=== PATIENT | female | born 1980 | race Caucasian/White ===

== ENCOUNTER 2021-02-06 20:37 | Emergency (ER) | payer OTHER ==
[~2021-02-06] VITALS: Ht 160 cm; Wt 88.1 kg
[2021-02-06 21:24] LABS: Source, Urine Clean Catch
[2021-02-06 21:27] LABS: Bilirubin, Urine Neg (Neg); Blood, Urine 1+ (Neg); Glucose Qualitative, Urine Neg (Neg); Ketones, Urine 2+ (Neg); Leukocyte Esterase, Urine Neg (Neg); Nitrite, Urine Neg (Neg); Protein, Urine Neg (Neg); Specific Gravity, Urine 1.015 (1.003-1.022); Urobilinogen, Urine NORM (Normal)
[2021-02-06 21:29] LABS: Appearance, Urine Clear (Clear); Color, Urine Yellow (P-Yellow)
[2021-02-06 21:36] LABS: Bacteria Not Seen /hpf; Red Blood Cells, Urine 0-2 /hpf (0-2); Squamous Epithelial Cells Few /hpf (Few); White Blood Cells, Urine 0-2 /hpf (0-5)
[2021-02-06 21:38] LABS: BASOPHILS ABSOLUTE AUTO 0.07 K/mm3 (0.00-0.23); BASOPHILS PERCENT AUTO 1 % (0-2); EOSINOPHILS ABSOLUTE AUTO 0.07 K/mm3 (0.00-0.68); EOSINOPHILS PERCENT AUTO 1 % (0-6); Hematocrit 45.6 % (33.0-51.0); Hemoglobin 14.7 g/dL (11.5-16.0); IMMATURE GRAN ABSOLUTE AUTO 0.04 K/mm3 (0.00-0.10); IMMATURE GRAN PERCENT AUTO 0 % (0-1); LYMPHOCYTES ABSOLUTE AUTO 3.08 K/mm3 (0.84-5.20); LYMPHOCYTES PERCENT AUTO 30 % (21-46); MONOCYTES PERCENT AUTO 6 % (4-13); Mean Corpuscular HGB Conc 32.2 g/dL (31.5-36.5); Mean Corpuscular Volume 81 fL (80-100); Mean Platelet Volume 9.8 fL (9.1-12.4); NEUTROPHILS ABSOLUTE AUTO 6.38 K/mm3 (1.96-9.15); NEUTROPHILS PERCENT AUTO 62 % (41-73); Platelet Count 288 K/mm3 (150-400); RDW Standard Deviation 37.7 fL (35.1-46.3); Red Blood Cell Count 5.66 M/mm3 (3.80-5.20); White Blood Cell Count 10.24 K/mm3 (4.00-11.30)
[2021-02-06 21:57] LABS: Alanine Aminotransfer (ALT/SGP 41 U/L (12-78); Albumin, Blood 3.8 g/dL (3.4-5.0); Albumin/Globulin Ratio 1.1 (0.8-1.8); Alk Phos 95 U/L (50-136); Anion Gap 6 mmol/L (6-16); Aspartate Aminotrans (AST/SGOT 26 U/L (12-37); Bilirubin, Total 0.4 mg/dL (0.1-1.0); Blood Urea Nitrogen 13 mg/dL (8-24); Bun/Creatinine Ratio 16.2 (12.0-20.0); CO2, Blood 25 mmol/L (21-32); Chloride, Blood 108 mmol/L (98-108); Globulin, Blood 3.6 g/dL (2.2-4.0); Glomerular Filtration Rate >60 (60-); Glucose, Blood 118 mg/dL (70-99); Potassium, Blood 3.9 mmol/L (3.5-5.5); Sodium, Blood 139 mmol/L (136-145); Total Protein, Blood 7.4 g/dL (6.4-8.2)
== END 2021-02-07 00:17 | disposition home or self-care (01) ==
LOC: ER 20:37
PROVIDERS: Physician Assistant
DX: M54.5 Low back pain (principal); G89.29 Other chronic pain; R51.9 Headache, unspecified
CPT/HCPCS: 36415; 80053; 81001; 81025; 85025; 93005; 93010; 96372; 99283-25; A9270; J1885

== ENCOUNTER → 2021-10-12 | Outpatient (CLI) | payer OTHER | END | disposition home or self-care (01) | LOC: LAB SHORT 15:00 | DX: N39.0 Urinary tract infection, site not specified (principal) | CPT/HCPCS: 87077; 87086; 87186 ==

== ENCOUNTER → 2022-03-21 | Outpatient (CLI) | payer OTHER ==
[2022-03-22 14:52] LABS: Candida species (DNA Probe) Negative (NEGATIVE); G. vaginalis (DNA Probe) Negative (NEGATIVE); T. vaginalis (DNA Probe) Negative (NEGATIVE)
[2022-03-23 11:10] LABS: HPV 16 Negative (Negative); HPV 18 Negative (Negative); HPV OTHER HR TYPES Negative (Negative)
== END | disposition home or self-care (01) ==
LOC: LAB SHORT 13:58 → LAB 13:58
PROVIDERS: Advanced Practice Midwife
DX: Z01.419 Encounter for gynecological examination (general) (routine) without abnormal findings (principal); N76.0 Acute vaginitis
CPT/HCPCS: 87480; 87510; 87624; 87660; G0123

== ENCOUNTER → 2024-10-09 | Outpatient (CLI) | payer OTHER | LOC: PLD 14:37 → LAB 14:37 → LAB SHORT 14:37 | DX: N92.1 Excessive and frequent menstruation with irregular cycle (principal) | CPT/HCPCS: 88305 ==

== ENCOUNTER 2024-12-07 06:02 | Day surgery (SDC) | payer OTHER ==
[~2024-12-07] VITALS: Ht 160 cm; Wt 84.1 kg
[2024-12-07] VITALS (13 sets, daily range): BP systolic 113–139; BP diastolic 52–92
[2024-12-07] MEDS ORDERED: propofoL 40 ML IV ONE (06:08)
[2024-12-07] MEDS ORDERED: FentaNYL Citrate 50 MCG/ML 2 ML Injection ONE ×3 (06:08→09:57)
[2024-12-07] MEDS ORDERED: Dexamethasone Sod Phos 10 MG/ML 1ML VIAL ONE (06:08)
[2024-12-07] MEDS ORDERED: Sugammadex Sodium 200 MG/2ML SDV (100 MG/ML) ONE (06:08)
[2024-12-07] MEDS ORDERED: Rocuronium Bromide 10 MG/ML 5ML Injection IV ONE (06:08)
[2024-12-07] MEDS ORDERED: Ondansetron HCl 2 MG / ML 2ML Vial ONE (06:08)
[2024-12-07] MEDS ORDERED: Atropine Sulfate 0.1 MG/ML 10ML SYR IV PRN (06:25)
[2024-12-07] MEDS ORDERED: Albuterol 2.5 MG/3 ML VIAL INH PRN (06:25)
[2024-12-07] MEDS ORDERED: FentaNYL Citrate 50 MCG/ML 2 ML Injection IV PRN ×4 (06:25→09:45)
[2024-12-07] MEDS ORDERED: Lactated Ringer's 1,000 ML IV SCH ×2 (06:30)
[2024-12-07] MEDS ORDERED: Lidocaine HCl 1% 5 ML SYR INJ ONE (06:30)
[2024-12-07] MEDS ORDERED: Ondansetron HCl 2 MG / ML 2ML Vial IV PRN ×2 (06:30→09:45)
[2024-12-07] MEDS ORDERED: CeFAZolin Sodium 2,000 MG in NS 100 ML IV SCH (06:30)
[2024-12-07] MEDS ORDERED: MONT5TCH PO (06:30)
[2024-12-07] MEDS ORDERED: Metoclopramide HCl 5MG / ML 2ML Vial IV PRN (06:30)
[2024-12-07] MEDS ORDERED: Midazolam HCl 1MG / ML 2ML Vial IV ONE (07:00)
[2024-12-07] MEDS ORDERED: Bupivacaine 0.25% Epi 1:200000 30 ML Vial ONE (07:05)
[2024-12-07 07:26] LABS: Bun/Creatinine Ratio 18.5 (12.0-20.0); Calcium, Blood 8.7 mg/dL (8.5-10.1); Creatinine, Blood 0.65 mg/dL (0.40-1.00); Potassium, Blood 3.7 mmol/L (3.5-5.5)
[2024-12-07] MEDS ORDERED: Ketorolac Tromethamine 30mg Vial ONE (07:50)
[2024-12-07] MEDS ORDERED: Simethicone 80 MG Chew PO PRN (09:40)
[2024-12-07] MEDS ORDERED: FLU VACC TS2024-25(6MOS UP)/PF 45 MCG/0.5 ML SYRINGE IM SCH (09:40)
[2024-12-07] MEDS ORDERED: Ketorolac Tromethamine 30mg Vial IV PRN (09:40)
[2024-12-07] MEDS ORDERED: Metoclopramide HCl 10 MG Tab PO PRN (09:40)
[2024-12-07] MEDS ORDERED: DiphenhydrAMINE HCL 25 MG Cap PO PRN (09:45)
[2024-12-07] MEDS ORDERED: OxyCODONE HCL 5 MG TAB PO PRN ×2 (09:45)
--- NOTE | 2024-12-07 12:12 | NUR ---
AMBUALTION - PT AMBULATED TO THE BATHROOM WITH SBA FROM ONE NURSE AND GAITBELT. SHE VOIDED 100ML OF YELLOW URINE WITH SCANT BLOOD. NO BLOOD DISCHARGE TO VALENTIN-PAD. PT DENIES DIZZINESS WITH STANDING. PRESENTLY, SHE IS SITTING AND EATING LUNCH. TOLERATING PO INTAKE.
[2024-12-07] MEDS ORDERED: IBUP800 PO (15:35)
[2024-12-07] MEDS ORDERED: OXAYDO5 M1 PO (15:35)
--- NOTE | 2024-12-07 16:29 | NUR ---
RN REMOVED PT'S IV. PT TRANSFERRED TO A WHEELCHAIR, POWERED BY PAWN SHOP KEEPER, OUT OF HOSPITAL TO CARE OF PT'S SPOUSE, IN PRIVATE CAR. ALL PERSONAL BELONGINGS RETURNED. PT TOLERATED PROCEDURE WELL.
== END 2024-12-07 16:20 | disposition home or self-care (01) ==
LOC: ORSCMMR 06:02 → ORD 07:30 → SURS 10:20 → ORSCMMR 10:20 → SURS 16:20 → ORSCMMR 16:20
PROVIDERS: Obstetrics & Gynecology
PROC: 0UT9FZZ Resection of Uterus, Via Natural or Artificial Opening With Percutaneous Endoscopic Assistance (ICD-10-PCS; principal; 2024-12-07 07:30)
PROC: 0UT7FZZ Resection of Bilateral Fallopian Tubes, Via Natural or Artificial Opening With Percutaneous Endoscopic Assistance (ICD-10-PCS; principal; 2024-12-07 07:30)
DX: N92.0 Excessive and frequent menstruation with regular cycle (principal); D25.0 Submucous leiomyoma of uterus; N80.34 Deep endometriosis of the pelvic sidewall; Q50.5 Embryonic cyst of broad ligament; J45.909 Unspecified asthma, uncomplicated; E66.9 Obesity, unspecified; Z68.35 Body mass index [BMI] 35.0-35.9, adult; Z79.899 Other long term (current) drug therapy
CPT/HCPCS: 80048; 86850; 86900; 86901; 88307; A9270; J0690; J1100; J1885; J2250; J2405; J2704; J3010; J7120